=== PATIENT | male | born 1955 | race Caucasian/White ===

== ENCOUNTER 2017-08-03 21:49 | Emergency (ER) | payer SELFPAY ==
[~2017-08-03] VITALS: Ht 177.8 cm; Wt 97.5 kg
[~2017-08-03 21:49] MED LIST: CARB1TAB40; LISI-552; METF500T5; SIMV10TA3
[2017-08-03] MEDS ORDERED: THIAMINE INJECTION 100 MG, FOLIC ACID INJECTION 1 MG, VITAMIN MULTI INJECTION 10 ML, MA... IV STA ×5 (21:58)
[2017-08-03 22:04] LABS: BASOPHILS # (AUTO) 0.1 10^3/uL (0.0-0.1); BASOPHILS % (AUTO) 1 % (0-10); EOSINOPHILS # (AUTO) 0.4 10^3/uL (0.0-0.3); EOSINOPHILS % (AUTO) 3 % (0-10); HEMATOCRIT 51 % (40-54); HEMOGLOBIN 18.3 G/DL (13.3-17.7); LYMPHOCYTES # (AUTO) 6.3 X 10^3 (1.0-4.0); LYMPHOCYTES % (AUTO) 47 % (12-44); MEAN CORPUSCULAR HEMOGLOBIN 32 PG (25-34); MEAN CORPUSCULAR HGB CONC 36 G/DL (32-36); MEAN CORPUSCULAR VOLUME 91 FL (80-99); MEAN PLATELET VOLUME 9.6 FL (7.4-10.4); MONOCYTES # (AUTO) 0.9 X 10^3 (0.0-1.0); MONOCYTES % (AUTO) 7 % (0-12); NEUTROPHILS # (AUTO) 5.6 X 10^3 (1.8-7.8); NEUTROPHILS % (AUTO) 42 % (42-75); PLATELET COUNT 320 10^3/uL (130-400); RED BLOOD COUNT 5.65 10^6/uL (4.35-5.85); RED CELL DISTRIBUTION WIDTH 13.9 % (10.0-14.5); WHITE BLOOD COUNT 13.2 10^3/uL (4.3-11.0)
--- NOTE | 2017-08-03 22:04 | ED Syncope ---
General Chief Complaint: Substance Abuse Stated Complaint: ETOH Source of Information: Patient, EMS Exam Limitations: Intoxication History of Present Illness Date Seen by Provider: Aug 03, 2017 Time Seen by Provider: 21:54 Initial Comments The patient presents to ER by EMS. Apparently family found him passed out on the porch. He says he's been drinking all day went to the bar with a friend and then came home and had several friends drop by throughout the day and had some more drinks as well as smokes marijuana and he went set down on a chair for about 10 minutes and is about all he remembers. After that he says he was being picked up by EMS and brought him because he had apparently passed out. EMS said he had not fallen there is no striking of the head. He is on blood pressure lisinopril and Cardopa levodopa for his parkinsonism. He's been sitting out on the front porch for the past several hours drinking. He has been drinking Ariadna Shin and liquor and a few beers. He is not sure how many. He denies any other recreational drugs. He denies any pain, shortness of breath, fevers, chills, nausea. Allergies and Home Medications Allergies Coded Allergies: No Known Drug Allergies (Unverified , 09/04/15) Patient Home Medication List Home Medication List Reviewed: Yes Constitutional: No chills, No diaphoresis EENTM: No ear pain, No eye pain Respiratory: No cough, No short of breath Cardiovascular: No chest pain, No edema Gastrointestinal: No abdominal pain, No constipation, No diarrhea, No nausea, No vomiting Genitourinary: No discharge, No dysuria Musculoskeletal: No back pain, No joint pain Past Zgihdjf-Bhpbpd-Piuwir Hx Patient Social History Alcohol Use: Regular Use Alcohol Beverage of Choice: Beer, Whiskey Smoking Status: Current Everyday Smoker Type Used: Cigarettes Recent Hopitalizations: No Past Medical History High Cholesterol, Hypertension Reproductive Disorders: No Sexually Transmitted Disease: No Diabetes, Non-Insulin dep Physical Exam Vital Signs Vital Signs - First Documented 08/03/17 21:51 Temp 98.7 Pulse 101 Resp 18 B/P (MAP) 104/73 (83) Pulse Ox 91 O2 Delivery Room Air Capillary Refill : General Appearance: No Apparent Distress, WD/WN HEENT: PERRL/EOMI, Pharynx Normal Neck: Full Range of Motion, Non Tender, Supple Cardiovascular: Regular Rate, Rhythm, Normal Peripheral Pulses Respiratory: Chest Non Tender, Lungs Clear, Normal Breath Sounds, No Accessory Muscle Use, No Respiratory Distress Gastrointestinal: Non Tender, Soft Extremities: Normal Capillary Refill, No Pedal Edema Neurologic/Psychiatric: Alert, Oriented x3, Other Cranial Nerves: Normal Hearing, PERRL, Abnormal Speech (slight slurring) Motor/Sensory: No Motor Deficit, No Sensory Deficit, No Pronator Drift Skin: Normal Color, Warm/Dry Progress/Results/Core Measures Results/Orders Lab Results Laboratory Tests Test 08/03/17 21:53 Range/Units White Blood Count 13.2 H 4.3-11.0 10^3/uL Red Blood Count 5.65 4.35-5.85 10^6/uL Hemoglobin 18.3 H 13.3-17.7 G/DL Hematocrit 51 40-54 % Mean Corpuscular Volume 91 80-99 FL Mean Corpuscular Hemoglobin 32 25-34 PG Mean Corpuscular Hemoglobin Concent 36 32-36 G/DL Red Cell Distribution Width 13.9 10.0-14.5 % Platelet Count 320 130-400 10^3/uL Mean Platelet Volume 9.6 7.4-10.4 FL Neutrophils (%) (Auto) 42 42-75 % Lymphocytes (%) (Auto) 47 H 12-44 % Monocytes (%) (Auto) 7 0-12 % Eosinophils (%) (Auto) 3 0-10 % Basophils (%) (Auto) 1 0-10 % Neutrophils # (Auto) 5.6 1.8-7.8 X 10^3 Lymphocytes # (Auto) 6.3 H 1.0-4.0 X 10^3 Monocytes # (Auto) 0.9 0.0-1.0 X 10^3 Eosinophils # (Auto) 0.4 H 0.0-0.3 10^3/uL Basophils # (Auto) 0.1 0.0-0.1 10^3/uL Sodium Level 140 135-145 MMOL/L Potassium Level 3.3 L 3.6-5.0 MMOL/L Chloride Level 106 98-107 MMOL/L Carbon Dioxide Level 16 L 21-32 MMOL/L Anion Gap 18 H 5-14 MMOL/L Blood Urea Nitrogen 8 7-18 MG/DL Creatinine 1.14 0.60-1.30 MG/DL Estimat Glomerular Filtration Rate > 60 BUN/Creatinine Ratio 7 Glucose Level 150 H 70-105 MG/DL Calcium Level 9.4 8.5-10.1 MG/DL Magnesium Level 2.5 H 1.8-2.4 MG/DL Total Bilirubin 0.5 0.1-1.0 MG/DL Aspartate Amino Transf (AST/SGOT) 30 5-34 U/L Alanine Aminotransferase (ALT/SGPT) 28 0-55 U/L Alkaline Phosphatase 63 40-136 U/L Total Protein 7.9 6.4-8.2 GM/DL Albumin 4.6 H 3.2-4.5 GM/DL Serum Alcohol 157 H <10 MG/DL My Orders Orders - CARRIE DUARTE Alcohol (08/03/17 21:58) Cbc With Automated Diff (08/03/17 21:58) Comprehensive Metabolic Panel (08/03/17 21:58) Drug Screen Stat (Urine) (08/03/17 21:58) Magnesium (08/03/17 21:58) Ua Culture If Indicated (08/03/17 21:58) Thiamine Injection (Vitamin B-1 Injectio (08/03/17 21:58) Ns Iv 1000 Ml (Sodium Chloride 0.9%) (08/03/17 22:08) Magnesium Sulfate Inj (Magnesium Sulfate (08/03/17 22:08) Folic Acid Syr (Ed) (Folic Acid Syr (Ed) (08/03/17 22:09) Thiamine Injection (Vitamin B-1 Injectio (08/03/17 22:09) Medications Given in ED Current Medications Medications Dose Ordered Sig/Ulysses Route Start Time Stop Time Status Last Admin Dose Admin Folic Acid 1 mg STK-MED ONCE .ROUTE 08/03/17 22:09 08/03/17 22:11 DC 08/03/17 22:15 1 MG Magnesium Sulfate 1 gm STK-MED ONCE .ROUTE 08/03/17 22:08 08/03/17 22:10 DC 08/03/17 22:14 1 GM Sodium Chloride 1,000 ml @ ud STK-MED ONCE .ROUTE 08/03/17 22:08 08/03/17 22:10 DC 08/03/17 22:14 999 MLS/HR Thiamine HCl 200 mg STK-MED ONCE .ROUTE 08/03/17 22:09 08/03/17 22:11 DC 08/03/17 22:15 200 MG Vital Signs/I&O 08/03/17 21:51 Temp 98.7 Pulse 101 Resp 18 B/P (MAP) 104/73 (83) Pulse Ox 91 O2 Delivery Room Air Progress Progress Note #1: Time: 22:03 Progress Note The patient has declined EKG or imaging. He states that he thinks he just drank too much. For possible he's got heat exhaustion and alcohol intoxication. EMS put oxygen on him because his oxygen sats were 90 year 91%. He is received a half liter bolus for Ventolin and have the other half of normal saline and then give him a liter of banana bag with potassium. We'll obtain some basic labs which he has agreed to and then reevaluate him. Progress Note #2: Time: 22:57 Progress Note Patient got up and walked provided a urine sample and is feeling much better and prepared to go home. Departure Impression Primary Impression: Heat exhaustion Qualified Codes: T67.5XXA - Heat exhaustion, unspecified, initial encounter Additional Impressions: Alcohol abuse Syncopal episodes Qualified Codes: T67.1XXA - Heat syncope, initial encounter Disposition: 01 HOME, SELF-CARE Condition: Improved Departure-Patient Inst. Decision time for Depature: 22:57 Referrals: EDUARDO JONES DO (PCP) Primary Care Physician CLYDE LOUISE APRN (Family) Primary Care Physician Patient Instructions: ALCOHOL AND SUBSTANCE ABUSE Add. Discharge Instructions: Drink lots of water. Take 1-2 Gatorade or Powerade a day for the next couple days to replenish the salts you've lost and the fluids. Follow-up with your primary care doctor early next week if you're still having any symptoms. Return to the ER if you have any further worrisome symptoms such as fever, nausea vomiting, chest pain, shortness of breath. All discharge instructions reviewed with patient and/or family. Voiced understanding. Copy Copies To 1: EDUARDO JONES TITUS J Aug 03, 2017 22:04
[2017-08-03] MEDS ORDERED: NS IV 1000 ML 1,000 ML ONE (22:08)
[2017-08-03] MEDS ORDERED: MAGNESIUM SULFATE 1 GM/2 ML VIAL ONE (22:08)
[2017-08-03] MEDS ORDERED: THIAMINE 100 MG/ML 2 ML (VITAMIN B-1) VIAL ONE (22:09)
[2017-08-03] MEDS ORDERED: FOLIC ACID 1 MG/0.2 ML SYR (ED) ONE (22:09)
[2017-08-03 22:20] LABS: ALANINE AMINOTRANSFERASE 28 U/L (0-55); ALBUMIN 4.6 GM/DL (3.2-4.5); ALKALINE PHOSPHATASE 63 U/L (40-136); BILIRUBIN,TOTAL 0.5 MG/DL (0.1-1.0); BUN/CREATININE RATIO 7; CALCIUM 9.4 MG/DL (8.5-10.1); CARBON DIOXIDE 16 MMOL/L (21-32); CHLORIDE 106 MMOL/L (98-107); CREATININE SERUM 1.14 MG/DL (0.60-1.30); GFR ESTIMATED > 60; GLUCOSE 150 MG/DL (70-105); MAGNESIUM 2.5 MG/DL (1.8-2.4); POTASSIUM 3.3 MMOL/L (3.6-5.0); SODIUM 140 MMOL/L (135-145); TOTAL PROTEIN 7.9 GM/DL (6.4-8.2)
[2017-08-03 23:05] LABS: BILIRUBIN,URINE NEGATIVE (NEGATIVE); CLARITY,URINE CLEAR; COLOR,URINE YELLOW; GLUCOSE, URINE (UA) NEGATIVE (NEGATIVE); KETONES,URINE NEGATIVE (NEGATIVE); LEUKOCYTE ESTERASE ,URINE NEGATIVE (NEGATIVE); NITRITE,URINE NEGATIVE (NEGATIVE); PH,URINE 6 (5-9); PROTEIN,URINE 1+ (NEGATIVE); UROBILINOGEN,URINE NORMAL (NORMAL)
[2017-08-03 23:11] LABS: BACTERIA,URINE NEGATIVE /HPF; RBC,URINE RARE /HPF; WBC,URINE RARE /HPF
[2017-08-03 23:14] VITALS: BP 112/86
[2017-08-03 23:17] LABS: AMPHETAMINE SCREEN, URINE NEGATIVE (NEGATIVE); BARBITURATE SCREEN URINE NEGATIVE (NEGATIVE); BENZODIAZEPINES SCREEN URINE NEGATIVE (NEGATIVE); CANNABINOID SCREEN, URINE NEGATIVE (NEGATIVE); COCAINE SCREEN URINE NEGATIVE (NEGATIVE); METHADONE STAT NEGATIVE (NEGATIVE); METHAMPHETAMINE SCREEN URINE S NEGATIVE (NEGATIVE); OPIATE SCREEN URINE NEGATIVE (NEGATIVE); OXYCODONE STAT NEGATIVE (NEGATIVE); PROPOXYPHENE STAT NEGATIVE (NEGATIVE); TRICYCLIC ANTIDEPRESSANTS SCRE NEGATIVE (NEGATIVE)
== END 2017-08-03 23:14 | disposition home or self-care (01) ==
LOC: EDUNIT# 21:49 → ER 21:50
DX: T67.5XXA Heat exhaustion, unspecified, initial encounter (principal); F10.129 Alcohol abuse with intoxication, unspecified; R55 Syncope and collapse; E78.00 Pure hypercholesterolemia, unspecified; I10 Essential (primary) hypertension; E11.9 Type 2 diabetes mellitus without complications; F17.210 Nicotine dependence, cigarettes, uncomplicated
CPT/HCPCS: 36415; 80053; 80306; 80320; 81000; 83735; 85025; 96365

== ENCOUNTER 2020-10-16 09:57 | Day surgery (SDC) | payer MEDICARE ==
[~2020-10-16] VITALS: Ht 165.1 cm; Wt 82.7 kg
[2020-10-16] VITALS (9 sets, daily range): BP systolic 128–162; BP diastolic 62–121
[~2020-10-16 09:57] MED LIST changes: -LISI-552; +LISI20TA26; +METF-397; -METF500T5; +SIMV10TA26; -SIMV10TA3
[2020-10-16 10:27] LABS: ABSOLUTE RETIC # 59 10e9/uL (24-90); BASOPHILS # (AUTO) 0.1 10^3/uL (0.0-0.1); BASOPHILS % (AUTO) 1 % (0-10); EOSINOPHILS # (AUTO) 0.3 10^3/uL (0.0-0.3); EOSINOPHILS % (AUTO) 3 % (0-10); HEMATOCRIT 59 % (40-54); HEMOGLOBIN 20.4 g/dL (13.3-17.7); LYMPHOCYTES # (AUTO) 2.5 10^3/uL (1.0-4.0); LYMPHOCYTES % (AUTO) 27 % (12-44); MEAN CORPUSCULAR HEMOGLOBIN 32 pg (25-34); MEAN CORPUSCULAR HGB CONC 34 g/dL (32-36); MEAN CORPUSCULAR VOLUME 92 fL (80-99); MEAN PLATELET VOLUME 9.3 fL (9.0-12.2); MONOCYTES # (AUTO) 0.6 10^3/uL (0.0-1.0); MONOCYTES % (AUTO) 6 % (0-12); NEUTROPHILS # (AUTO) 5.8 10^3/uL (1.8-7.8); NEUTROPHILS % (AUTO) 63 % (42-75); PLATELET COUNT 278 10^3/uL (130-400); RETICULOCYTE % 0.92 % (0.50-2.40); WHITE BLOOD COUNT 9.2 10^3/uL (4.3-11.0)
[2020-10-16 10:42] LABS: PROTHROMBIN TIME PATIENT 13.9 SEC (12.2-14.7)
[2020-10-16 11:10] LABS: BAND NEUTROPHILS 3 %; BASOPHILS % (MANUAL) 0 %; EOSINOPHILS % (MANUAL) 4 %; LYMPHOCYTES % (MANUAL) 28 %; MONOCYTES % (MANUAL) 5 %; NEUTROPHILS % (MANUAL) 60 %; RBC MORPH NORMAL
[2020-10-16] MEDS ORDERED: NS IV 1000 ML 1,000 ML IV STA (11:13)
[2020-10-16] MEDS ORDERED: fentaNYL INJ 100 MCG/2 ML AMP IVP ONE (11:15)
[2020-10-16] MEDS ORDERED: MIDAZOLAM 2 MG/2 ML (VERSED) VIAL IVP ONE (11:15)
[2020-10-16] MEDS ORDERED: LIDOCAINE 1% INJ 20 ML 20 ML VIAL INJ ONE (11:15)
[2020-10-16] MEDS ORDERED: MIDAZOLAM 2 MG/2 ML (VERSED) VIAL ONE (11:25)
[2020-10-16] MEDS ORDERED: fentaNYL INJ 100 MCG/2 ML AMP ONE (11:25)
[2020-10-16] MEDS ORDERED: NS IV 1000 ML 1,000 ML ONE (11:25)
[2020-10-16] MEDS ORDERED: LIDOCAINE 1% INJ 20 ML 20 ML VIAL ONE (11:25)
[2020-10-16] MEDS ORDERED: HYDROcodone/APAP 5 MG/325 MG (LORTAB) TAB PO PRN (12:30)
--- NOTE | 2020-10-16 13:11 | Diagnostic Imaging Report ---
INDICATION: Hemoglobinopathy. The patient presents for CT-guided bone marrow aspiration and biopsy. Patient brought to the CT suite placed on table in the prone position. Axial imaging through the pelvis was performed to evaluate appropriate entry site. The procedure was performed utilizing conscious sedation with radiology nursing and constant monitoring. Patient was given a total of 50 mcg of [place] intravenously and 0.5 mg of Versed intravenously. Total procedure time was 4 minutes. 11-gauge bone marrow needle was advanced and placed with its tip along the posterior cortex of the right iliac bone. Needle was advanced through the cortex utilizing the bone marrow drill. 2 bone marrow aspirates were then obtained. Next, drill was used to obtain a bone marrow core biopsy. Needle was removed and hemostasis was obtained using manual compression. Patient tolerated procedure well and left the department in stable condition. IMPRESSION: Successful CT-guided bone marrow aspiration and core biopsy utilizing conscious sedation. Dictated by: Dictated on workstation # [id number]
--- NOTE | 2020-10-16 15:20 | Pre-Op Note & Conscious Sedat ---
Pre-Operative Progress Note H&P Reviewed The H&P was reviewed, patient examined and no changes noted. Date H&P Reviewed: Oct 16, 2020 Time H&P Reviewed: 11:00 Pre-Op Diagnosis: hemoglobinopathy Conscious Sedation Pre-Proced Time 11:00 ASA Score 2 For ASA 3 and 4: Consider anesthesia and medical clearance. Also, for patients with a history of failed moderate sedation consider anesthesia. Airway Lungs Heart ASA score ASA 1: a normal healthy patient ASA 2: a patient with a mild systemic disease (mid diabetes, controlled hypertension, obesity ASA 3: a patient with a severe systemic disease that limits activity (angina, COPD, prior Myocardial infarction) ASA 4: a patient with an incapacitating disease that is a constant threat to life (CHF, renal failure) ASA 5: a moribund patient not expected to survive 24 hrs. (ruptured aneurysm) ASA 6: a declared brain- patient whose organs are being harvested. For emergent operations, add the letter E after the classification Mallampati Classification Grade 2 Sedation Plan Analgesia, Amnesia, Plan communicated to team members, Discussed options with brandi medina/fam, Discussed risks with patient/fam The patient is an appropriate candidate to undergo the planned procedure, sedation, and anesthesia. The patient immediately re-assessed prior to indication. ADA SPIVEY MD Oct 16, 2020 15:20
== END 2020-10-16 14:10 | disposition home or self-care (01) ==
LOC: RAD 09:57 → SDC 12:08 → RAD 14:10
PROVIDERS: ATTEND Internal Medicine Hematology & Oncology
DX: D58.2 Other hemoglobinopathies (principal); Z79.899 Other long term (current) drug therapy
CPT/HCPCS: 36415; 38220; 38221; 38222; 77012; 85007; 85027; 85045; 85610; 85730; 88237; 88264; 99156

== ENCOUNTER 2020-10-28 13:54 | Outpatient (RCR) | payer MEDICAID, MEDICARE ==
[2020-10-09 10:24] LABS: BASOPHILS # (AUTO) 0.1 10^3/uL (0.0-0.1); BASOPHILS % (AUTO) 1 % (0-10); EOSINOPHILS # (AUTO) 0.2 10^3/uL (0.0-0.3); EOSINOPHILS % (AUTO) 2 % (0-10); HEMATOCRIT 64 % (40-54); HEMOGLOBIN 21.2 g/dL (13.3-17.7); LYMPHOCYTES # (AUTO) 2.3 10^3/uL (1.0-4.0); LYMPHOCYTES % (AUTO) 22 % (12-44); MEAN CORPUSCULAR HEMOGLOBIN 31 pg (25-34); MEAN CORPUSCULAR HGB CONC 33 g/dL (32-36); MEAN CORPUSCULAR VOLUME 94 fL (80-99); MEAN PLATELET VOLUME 9.2 fL (9.0-12.2); MONOCYTES # (AUTO) 0.8 10^3/uL (0.0-1.0); MONOCYTES % (AUTO) 8 % (0-12); NEUTROPHILS # (AUTO) 7.2 10^3/uL (1.8-7.8); NEUTROPHILS % (AUTO) 68 % (42-75); PLATELET COUNT 274 10^3/uL (130-400); WHITE BLOOD COUNT 10.6 10^3/uL (4.3-11.0)
[2020-10-09 10:46] LABS: ALANINE AMINOTRANSFERASE 33 U/L (0-55); ALBUMIN 4.8 GM/DL (3.2-4.5); ALKALINE PHOSPHATASE 53 U/L (40-136); BILIRUBIN,TOTAL 1.9 MG/DL (0.1-1.0); BUN/CREATININE RATIO 12; CALCIUM 10.4 MG/DL (8.5-10.1); CARBON DIOXIDE 28 MMOL/L (21-32); CHLORIDE 101 MMOL/L (98-107); CREATININE SERUM 0.97 MG/DL (0.60-1.30); GFR ESTIMATED 78; GLUCOSE 106 MG/DL (70-105); POTASSIUM 4.3 MMOL/L (3.6-5.0); SODIUM 142 MMOL/L (135-145); TOTAL PROTEIN 8.4 GM/DL (6.4-8.2)
[2020-10-28 14:29] LABS: BASOPHILS # (AUTO) 0.1 10^3/uL (0.0-0.1); BASOPHILS % (AUTO) 1 % (0-10); EOSINOPHILS # (AUTO) 0.3 10^3/uL (0.0-0.3); EOSINOPHILS % (AUTO) 3 % (0-10); HEMATOCRIT 58 % (40-54); HEMOGLOBIN 19.4 g/dL (13.3-17.7); LYMPHOCYTES # (AUTO) 2.9 10^3/uL (1.0-4.0); LYMPHOCYTES % (AUTO) 27 % (12-44); MEAN CORPUSCULAR HEMOGLOBIN 32 pg (25-34); MEAN CORPUSCULAR HGB CONC 33 g/dL (32-36); MEAN CORPUSCULAR VOLUME 95 fL (80-99); MEAN PLATELET VOLUME 9.1 fL (9.0-12.2); MONOCYTES # (AUTO) 0.8 10^3/uL (0.0-1.0); MONOCYTES % (AUTO) 7 % (0-12); NEUTROPHILS # (AUTO) 6.7 10^3/uL (1.8-7.8); NEUTROPHILS % (AUTO) 62 % (42-75); PLATELET COUNT 276 10^3/uL (130-400); WHITE BLOOD COUNT 10.7 10^3/uL (4.3-11.0)
== END 2021-01-07 | disposition home or self-care (01) ==
LOC: ONC 13:54
PROVIDERS: ATTEND Internal Medicine Hematology & Oncology
DX: D58.2 Other hemoglobinopathies (principal); G20 Parkinson's disease; I10 Essential (primary) hypertension
CPT/HCPCS: 80053; 81256; 81270; 82728; 83540; 83550; 85025; G0463; 99213; 99214

== ENCOUNTER 2021-01-20 13:03 | Outpatient (RCR) | payer MEDICARE ==
[2021-01-15 08:55] LABS: BASOPHILS # (AUTO) 0.1 10^3/uL (0.0-0.1); BASOPHILS % (AUTO) 1 % (0-10); EOSINOPHILS # (AUTO) 0.3 10^3/uL (0.0-0.3); EOSINOPHILS % (AUTO) 4 % (0-10); HEMATOCRIT 55 % (40-54); HEMOGLOBIN 18.3 g/dL (13.3-17.7); LYMPHOCYTES # (AUTO) 2.9 10^3/uL (1.0-4.0); LYMPHOCYTES % (AUTO) 36 % (12-44); MEAN CORPUSCULAR HEMOGLOBIN 31 pg (25-34); MEAN CORPUSCULAR HGB CONC 33 g/dL (32-36); MEAN CORPUSCULAR VOLUME 94 fL (80-99); MONOCYTES # (AUTO) 0.7 10^3/uL (0.0-1.0); MONOCYTES % (AUTO) 8 % (0-12); NEUTROPHILS % (AUTO) 51 % (42-75); PLATELET COUNT 299 10^3/uL (130-400); WHITE BLOOD COUNT 7.9 10^3/uL (4.3-11.0)
[2021-01-15 09:07] LABS: ALBUMIN 4.3 GM/DL (3.2-4.5); BILIRUBIN,TOTAL 1.2 MG/DL (0.1-1.0); CALCIUM 9.4 MG/DL (8.5-10.1); CREATININE SERUM 0.94 MG/DL (0.60-1.30); POTASSIUM 4.2 MMOL/L (3.6-5.0); TOTAL PROTEIN 7.5 GM/DL (6.4-8.2)
== END 2021-02-05 | disposition home or self-care (01) ==
LOC: ONC 13:03
PROVIDERS: ATTEND Internal Medicine Hematology & Oncology
DX: D58.2 Other hemoglobinopathies (principal); G20 Parkinson's disease; I10 Essential (primary) hypertension
CPT/HCPCS: 80053; 82728; 83540; 83550; 85025; 99213

== ENCOUNTER → 2022-04-19 | Outpatient (CLI) | payer MEDICARE ==
[2022-04-20 11:50] LABS: ABSOLUTE RETIC # 63 10e9/uL (24-90); RETICULOCYTE % 1.03 % (0.50-2.40)
[2022-04-20 11:51] LABS: BAND NEUTROPHILS 2 %; EOSINOPHILS % (MANUAL) 1 %; LYMPHOCYTES % (MANUAL) 8 %; MONOCYTES % (MANUAL) 5 %; NEUTROPHILS % (MANUAL) 64 %; REACTIVE LYMPHOCYTES 20 %
[2022-04-20 11:52] LABS: PLATELET ESTIMATE OCC GIANT PLT
== END ==
LOC: LABNPT 15:30
DX: D58.2 Other hemoglobinopathies (principal)
CPT/HCPCS: 85007; 85045; 85055